=== PATIENT | female | born 1980 | race Caucasian/White ===

== ENCOUNTER 2025-09-26 04:04 | Emergency (ER) | payer MEDICAID ==
[2025-09-26] MEDS ORDERED: Sodium Chloride 0.9% 10 ML Syringe FLUSH PRN (04:43)
[2025-09-26] MEDS: Ondansetron 4 MG/2 ML SDV IVPUSH ONE (04:47)
[2025-09-26 04:56] LABS: MEAN PLATELET VOLUME 10.1 fL (6.0-10.0); PLATELET COUNT,PLT 256.0 K/uL (150-500); RED BLOOD CELL COUNT 3.9 M/uL (3.80-5.80); RED CELL DISTRIBUTION WIDTH 11.7 % (11.0-16.0); WHITE BLOOD CELL COUNT,WBC 13.7 K/uL (4.0-11.0)
[2025-09-26 05:19] LABS: A/G RATIO 1.1 (0.8-2.0); ALANINE AMINOTRANSFERASE,ALT 26.0 U/L (12-78); ASPARTATE AMNIOTRANSFERASE,AST 21.0 U/L (15-37); BILIRUBIN TOTAL 0.6 mg/dL (0.0-1.0); BLOOD UREA NITROGEN,BUN 23.0 mg/dL (8-26); CARBON DIOXIDE,CO2 25.7 mmol/L (21.0-32.0); CHLORIDE,CL 106.0 mmol/L (98-107); CREATININE 0.75 mg/dL (0.55-1.02); EST CRCL DRUG DOSING (CG) 74.92 mL/min; ESTIMATED GFR 100.0 mL/min (>60); GLUCOSE RANDOM 158.0 mg/dL (74-100); POTASSIUM,K 3.3 mmol/L (3.5-5.1); PROTEIN TOTAL,TP 6.6 g/dL (6.4-8.2); SODIUM,NA 141.0 mmol/L (136-145); TROPONIN I HIGH SENSITIVITY 5.5 pg/ml (<=60.4)
[2025-09-26] MEDS: GI Cocktail Oral Solution 30 ML PO ONE (06:10)
[2025-09-26] MEDS: Prochlorperazine 5 MG in Sodium Chloride 0.9% 50 ML IV ONE (06:13)
[2025-09-26] MEDS: Iopamidol 612 MG/ML 100 ML Bottle IV PRN (07:15)
[2025-09-26] MEDS: Sodium Chloride 0.9% 50 ML SDV FLUSH SCH (07:15)
[2025-09-26] MEDS: Octreotide 100 MCG/ML SDV IVPUSH ONE (08:35)
[2025-09-26] MEDS: Prochlorperazine 10 MG/2 ML SDV IVPUSH ONE (08:56)
[2025-09-26 11:09] VITALS: BP 121/64; PULSE 111
== END 2025-09-26 10:13 ==
LOC: LB.ED 04:04
DX: K92.2 Gastrointestinal hemorrhage, unspecified (principal); Z88.0 Allergy status to penicillin
CPT/HCPCS: 36415; 71045; 74177; 80053; 83735; 84484; 85027; 85379; 86850; 86900; 86901; 93005; 96361; 96365; 96367; 96375; 96376; 99285-25; A0425; A0428; A9270-GY; J0780; J2354-JA; J2405; J2470; J3480; J7030; Q9967